=== PATIENT | male | born 1945 | race Caucasian/White ===

== ENCOUNTER 2018-01-29 12:45 | Observation (INO) | payer MEDICARE, OTHER ==
[~2018-01-29] VITALS: Ht 177.8 cm; Wt 93.0 kg
[~2018-01-29 12:45] MED LIST: ALLOPURINOL PO; ALLOPURINOL100 MG PO; ATORVASTATIN CA20 MG PO; CLOPIDOGREL75 MG PO; COLESTIPOL HCL1 GM PO; ECOTRIN81 MG PO; PANTOPRAZOLE SO40 MG PO; VERAPAMIL; VERAPAMIL ER180 MG PO; verapamil PO
--- OUTSIDE RECORDS SUMMARY | 2018-01-29 13:06 | XMS REPORT ---
Author Author [facility] Address Unknown Phone Unavailable Care Team Providers Care Chairman & Ceo Name Role Phone CHEIKH CEBALLOS Unavailable Unavailable Problems This patient has no known problems. Allergies, Adverse Reactions, Alerts This patient has no known allergies or adverse reactions. Medications This patient has no known medications. Results Test Description Test Time Test Comments Text Results Atomic Results Result Comments SPINE CERVICAL AP LAT FLEX EXT [place] [address] Patient Name: SILVANA GARRISON MR #: [id number] : 1945 Age/Sex: 72/M Req #: [id number] Adm Physician: Ordered by: CHEIKH CEBALLOS MD Report #: [id number] Location: [facility] Room/Bed: Procedure: [id number] DX/SPINE CERVICAL AP LAT FLEX EXT Exam Date: 05/22/17 Exam Time: 0725 REPORT STATUS: Signed PROCEDURE : C-SPINE AP AND LAT WITH FLEX AND EXT COMPARISON: Cervical spine, 2 views, 04/25/2017. INDICATIONS: EVALUATE FUSION STATUS FINDINGS: C1 through C7 are visualized on the lateral view. Re-demonstration of status post anterior fusion of C4, C5, and C6 with metallic plate and transfixing screws which are intact and in adequate alignment. There has been minimal interval bony fusion. Flexion and extension views demonstrate no change in alignment. The prevertebral soft tissues are not swollen. Degenerative changes are evidenced by anterior osteophytosis. CONCLUSION: Status post anterior fusion of C4-C6 with some interval bony fusion. Intact hardware with adequate alignment. Dictated by: Aleshia Galvez M.D. on 05/22/2017 at 8:23 Electronically approved by: Aleshia Galvez M.D. on 05/22/2017 at 8:23 Dictated By: ALESHIA GALVEZ MD 2 Transcribed By: VICENTA on 05/22/17822 COPY TO: CHEIKH CEBALLOS MD
[2018-01-29 13:22] VITALS: BP 154/88
[2018-01-29 13:30] VITALS: BP 154/88
[2018-01-29] MEDS ORDERED: ASPIRIN 325 MG TAB PO ONE (13:30)
[2018-01-29] MEDS ORDERED: ASPIRIN 81 MG CHEW TAB PO ONE ×2 (13:30)
[2018-01-29 14:14] LABS: CREATINE KINASE 147 IU/L (30-200)
[2018-01-29 14:24] VITALS: BP 154/88
--- NOTE | 2018-01-29 14:57 | Diagnostic Imaging Report ---
PROCEDURE: Frontal and lateral views of the chest. COMPARISON: None. INDICATIONS: UPPER CHEST PAIN FINDINGS: Lines/tubes: None. Lungs: The lungs are well inflated and clear. There is no evidence of pneumonia or pulmonary edema. Pleura: There is no pleural effusion or pneumothorax. Heart and mediastinum: The heart and the mediastinum are normal. Bones: No acute bony abnormality. IMPRESSION: 1. No acute cardiopulmonary disease. Dictated by: Robert Romo M.D. on 01/29/2018 at 14:59 Electronically approved by: Robert Romo M.D. on 01/29/2018 at 14:59
[2018-01-29 15:10] LABS: CHOL/HDL RATIO 6.5 (3.9-4.7)
[2018-01-29 15:30] VITALS: BP 139/80
--- NOTE | 2018-01-29 16:06 | History and Physical ---
A 72-year-old gentleman comes in with chest pressure. HISTORY OF PRESENTING ILLNESS: This is a 72-year-old man. Mr. Masood Chatman was in his usual state of health until yesterday the patient started in the morning with some chest pressure, woke up with it and the pressure continued, intensified in nature and this morning the patient came into my office. Had history of chest pain for 2 days and described as pressure-like pain on top of the chest and felt like someone is stabbing him in his chest. Radiation to the right shoulder and onto the left shoulder. No relieving factors. The patient also has a history of reflux esophagitis, was seen by Dr. Wilkins and is on PPIs currently. MEDICATIONS: The patient's home medications are allopurinol 100 mg, atorvastatin 20 mg, clopidogrel 75 mg, colestipol 1 gram p.o. b.i.d., pantoprazole 40 mg daily and verapamil 180 mg ER every day. SURGICAL HISTORY: Includes history of left knee surgery, cholecystectomy, left TKA as mentioned above, left foot surgery and also history of appendectomy. SOCIAL HISTORY: No ETOH, no IV drug abuse. Retired person. Lives with . REVIEW OF SYSTEMS: Positive for chest pain. Negative for shortness of breath, just the discomfort. No nausea, vomiting, diarrhea. No constipation or rectal bleeding. No hematochezia. No hematemesis. No reflux esophagitis. Some abdominal pain in the right periumbilical area. PHYSICAL EXAMINATION GENERAL: Patient is alert and oriented times 3. VITAL SIGNS: Blood pressure is 154/88, respiration of 20, pulse of 70 and temperature is 98.1. Pulse ox 96%. HEENT: Normocephalic, atraumatic. Pupils are equal to light and accommodation. CVS: S1 and S2 normal. Regular rhythm. ABDOMEN: Slight tender in the periumbilical area and also mid epigastric area. EXTREMITIES: No clubbing, cyanosis, or edema. Varicosities also . IMAGING STUDIES: Patient's chest x-ray is pending. LABORATORY VALUES: Troponins have been negative. CBC and CMP pending. The patient will be admitted to the hospital. We will go ahead and continue with cardiac enzymes. Start him on a cardiac diet. Consult Dr. Etienne for cardiac services. Will possibly do a stress test if okay with Dr. Etienne, or Karma, and will continue monitoring the patient. Further recommendations per clinical course. Will check his lipids and also his thyroid profile. Possible discharge tomorrow depending on cardiac workup. Job#: [id number] OLY
[2018-01-29] MEDS ORDERED: ECOTRIN81 MG PO (16:38)
[2018-01-29] MEDS ORDERED: COLESTIPOL HCL 1 G TAB PO SCH ×3 (17:00→19:00)
[2018-01-29] MEDS ORDERED: CLOPIDOGREL BISULFATE 75 MG TAB PO STA (17:27)
[2018-01-29] MEDS ORDERED: ENOXAPARIN INJ 80 MG/0.8 ML SYR SC STA (17:27)
[2018-01-29] MEDS ORDERED: PREDNISONE 20 MG TAB PO PRN (17:45)
[2018-01-29] MEDS ORDERED: HYDROCORTISONE SOD SUCCINATE 100 MG VIAL IV PRN (17:45)
--- NOTE | 2018-01-29 18:29 | Consultation ---
DATE OF CONSULTATION: January 29, 2018 CARDIAC CONSULTATION REASON FOR CONSULTATION: Unstable angina. HISTORY: This is a 72-year-old gentleman who is relatively healthy. He does have hypertension and degenerative joint disease. The patient also does have giardia symptoms and followed by Dr. Wilkins. He is on Protonix. He was doing extremely well. However, for the last 2 days he is having severe retrosternal chest pain, pressure in nature, radiating to his back, worse with activity, totally different from his giardia symptoms. For the last few weeks, he is able to walk with his dog, and he if the dog goes faster he will have more symptoms. Regardless the pain was very severe. He does not like to see the doctor, but he figured out something different going home. He went to Dr. Montilla's office where rightly so admitted to this institution and cardiac consultation is obtained. Patient seen approximately around 5:36 p.m. He is complaining of these symptoms. It also radiated to his left arm. There is no diaphoresis. There is no nausea and no vomiting. REVIEW OF SYSTEMS: Was extensive to all systems, only pertinent positive and negative ones will be summarized. GENERAL: No fever. No chills. PULMONARY: No cough. No hemoptysis. No recent travel. No pleuritic chest pain. CARDIAC: As per above. GI: Patient's giardia symptoms nicely controlled with Protonix and he does not have them. He does have constipation and he attributed that for him taking Colestid. : No hematuria. No dysuria. NEUROMUSCULAR: Nonspecific aches. NEUROLOGIC: No headache, no syncope or presyncope. SOCIAL HISTORY: He is retired construction engineer. He is . He stopped smoking in year 1999. He rarely has a drink. HOME MEDICATIONS: Include verapamil 180 mg a day. Aspirin 81 mg a day. Allopurinol one tablet a day. Colestid 1 tablet twice a day. Protonix 40 mg a day. ALLERGIES: IN 2002 HE HAD IODINE AND WITH THAT HE HAD RASH. DEMEROL WILL MAKE HIM GOOFY. FAMILY HISTORY: Father at age of 85 with prostate cancer complication. Mother with acute myocardial infarction at age 83. A healthy brother at age 75. A healthy sister at age 59. Healthy son at age 45. PHYSICAL EXAMINATION VITALS: Height of 5 feet, 5 inches, weight of 207 pounds. Blood pressure 130/80. Heart rate of 70. Respiratory rate of 18. HEENT: Pupils are reactive. NECK: No elevation of jugular venous pulsation. No bruit. CHEST: Clear to auscultation and percussion. HEART: PMI 5th left intercostal space. Normal 1st and 2nd heart sounds. ABDOMEN: Soft with good bowel sounds. EXTREMITIES: No cyanosis. No clubbing. No edema. NEUROLOGIC: Awake, alert and oriented. No motor or sensory deficits. EKG showing normal sinus rhythm. IMAGING: Chest x-ray with no acute changes. Lipid profile showed triglycerides of 393, cholesterol 203, HDL 31, LDL 93. ASSESSMENT 1. Chest pain compatible with unstable coronary syndrome. 2. Hypertension. 3. Hypercholesterolemia. 4. Gout. 5. Degenerative joint disease. 6. History of gastroesophageal reflux disease on treatment, nicely controlled. 7. Decreased hearing. PLAN: The patient will be inpatient. He will be loaded with Plavix. He will be given 1 shot of Lovenox. Serial cardiac enzymes to be done. Will continue his verapamil. Will continue his aspirin. Options of workup are discussed. Patient will be scheduled for cardiac catheterization with possible intervention. Procedure risks, benefits and alternatives are discussed and explained. Job#: [id number]
[2018-01-29] MEDS: COLESTIPOL HCL 1 G TAB PO SCH (19:30)
[2018-01-29 20:00] VITALS: BP 125/75
[2018-01-29 21:00] VITALS: BP 125/75
[2018-01-29] MEDS ORDERED: ATORVASTATIN 20 MG TAB PO SCH (21:00)
[2018-01-29 22:49] LABS: CREATINE KINASE 110 IU/L (30-200)
[2018-01-30] VITALS (16 sets, daily range): BP systolic 124–137; BP diastolic 71–89
[2018-01-30] MEDS: SODIUM CHLORIDE 0.9% 1000ML 1,000 ML IV SCH ×5 (06:26→23:26)
[2018-01-30 06:40] LABS: BASOPHILS % 0.5 % (0.0-1.0); EOSINOPHILS # (AUTO) 0.3 (0.0-0.4); EOSINOPHILS % 3.3 % (0.0-6.0); HEMOGLOBIN 14.4 g/dL (14.0-18.0); LYMPHOCYTES # (AUTO) 2.1 (1.0-3.2); LYMPHOCYTES % 25.4 % (18.0-39.1); MEAN CORPUSCULAR HEMOGLOBIN 29.1 pg (28-32); MEAN CORPUSCULAR HGB CONC 33.5 g/dL (31-35); MONOCYTES # (AUTO) 0.8 (0.2-0.8); NEUTROPHILS # (AUTO) 4.9 (2.1-6.9); NEUTROPHILS % 60.6 % (38.7-80.0); PLATELET COUNT 150 x10e3/uL (140-360); RED BLOOD COUNT 4.94 x10e6/uL (4.3-5.7); RED CELL DISTRIBUTION WIDTH 14.8 % (11.7-14.4)
[2018-01-30 07:01] LABS: INR 0.97; PROTHROMBIN TIME 12.1 seconds (11.9-14.5)
[2018-01-30 07:02] LABS: PARTIAL THROMBOPLASTIN TIME 33.2 seconds (23.8-35.5)
[2018-01-30 07:37] LABS: FREE THYROXINE INDEX 1.7499 (1.4-3.8); THYROID STIMULATING HORMONE 1.777 uIU/mL (0.350-4.940)
[2018-01-30 08:32] LABS: ALANINE AMINOTRANSFERASE 25 IU/L (0-55); ALBUMIN 3.3 g/dL (3.5-5.0); ALKALINE PHOSPHATASE 130 IU/L (40-150); ANION GAP 14.1 mmol/L (8-16); BLOOD UREA NITROGEN 22 mg/dL (7-26); BUN/CREATININE RATIO 15 (6-25); CALCIUM 9.5 mg/dL (8.4-10.2); CARBON DIOXIDE 24 mmol/L (22-29); CHLORIDE 107 mmol/L (98-107); CHOL/HDL RATIO 7.4 (3.9-4.7); CHOLESTEROL 201 MD/DL (0-199); CREATINE KINASE 93 IU/L (30-200); EST GLOMERULAR FILTRATION RATE 46 ML/MIN (60-); GLUCOSE 106 mg/dL (74-118); HDL CHOLESTEROL 27 MG/DL (40-60); POTASSIUM 4.1 mmol/L (3.5-5.1); SODIUM 141 mmol/L (136-145); TRIGLYCERIDES 448 MG/DL (0-149)
[2018-01-30] MEDS ORDERED: SODIUM CHLORIDE 0.9% 1000ML 0 ML ONE (08:35)
[2018-01-30] MEDS ORDERED: IOPAMIDOL 370 MG/ML 200 ML INFUS..BTL INJ ONE ×2 (08:35→09:41)
[2018-01-30] MEDS ORDERED: LIDOCAINE HCL 2% LOCAL 20 ML VIAL ONE (08:35)
[2018-01-30] MEDS ORDERED: HEPARIN SOD (PORCINE) 1000 UNIT/ML 30ML ONE (08:35)
[2018-01-30] MEDS ORDERED: FENTANYL CITRATE/PF 100MCG/2 ML INJ ONE (08:55)
[2018-01-30] MEDS ORDERED: MIDAZOLAM HCL 2 MG/2 ML VIAL ONE ×2 (08:55→09:49)
[2018-01-30] MEDS ORDERED: PREDNISONE 20 MG TAB PO SCH (09:00)
[2018-01-30] MEDS ORDERED: CLOPIDOGREL BISULFATE 75 MG TAB PO SCH (09:00)
--- NOTE | 2018-01-30 12:01 | Operative Report ---
DATE OF PROCEDURE: January 30, 2018 TITLE OF PROCEDURE: Left cardiac catheterization. INDICATIONS: Unstable coronary syndrome. TECHNICAL DETAILS: After the usual sterile preparation and draping procedure, intravenous Versed and fentanyl given for sedation and local Xylocaine for anesthesia. A 4-Scottish sheath established in place and 3DRC to engage the right coronary artery. 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 We tried several catheters including JL3.5, JL4, AL1, AL2 and multipurpose. We were unable to engage the left main. For that reason the existing 4-Scottish sheath upgraded to a 5-Scottish sheath. A catheter FL3.5 used to engage the left main. Angiograms were done. Pigtail catheter for the left ventriculogram and aortic root injection. There were no complication, no blood loss. Total dye used approximately 125 mL. RESULTS 1. Coronary angiogram. 1. Left main anomalous origin. A 5-Scottish FL3.5 to engage. 2. LAD. There is ectatic area in the mid LAD. After that there is stagnant flow. There is 40% lesion. 3. Circumflex coronary artery free of disease. 4. Right coronary artery dominant artery is free of disease. B. Hemodynamic aorta pressure 140/80. LV pressure 140/20. C. Left ventriculogram in the right anterior oblique view showed normal size ventricle with an ejection fraction of 65%. IMPRESSION 1. Anomalous left main. 2. Dominant right coronary artery. 3. 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 4. Left ventricular ejection fraction of 65%. COMPLICATIONS: None. BLOOD LOSS: None. RECOMMENDATION: Medical therapy. Job#: [id number] OLY
[2018-01-30 15:40] LABS: CREATINE KINASE 139 IU/L (30-200)
[2018-01-30] MEDS: ASPIRIN 81 MG ENTERIC COATED PO SCH (18:24)
[2018-01-30] MEDS: VERAPAMIL HCL 180 MG TBER PO SCH (18:26)
[2018-01-30] MEDS: PANTOPRAZOLE SOD 40 MG TABEC PO SCH (18:26)
[2018-01-30] MEDS: COLESTIPOL HCL 1 G TAB PO SCH (18:26)
[2018-01-30] MEDS: ALLOPURINOL 100 MG TAB PO SCH (18:26)
[2018-01-31] VITALS: BP 142/84
[2018-01-31 04:00] VITALS: BP 141/83
[2018-01-31 07:29] VITALS: BP 136/91
[2018-01-31] MEDS: ASPIRIN 81 MG ENTERIC COATED PO SCH (09:39)
[2018-01-31] MEDS: VERAPAMIL HCL 180 MG TBER PO SCH (09:40)
[2018-01-31] MEDS: ALLOPURINOL 100 MG TAB PO SCH (09:40)
[2018-01-31] MEDS: PANTOPRAZOLE SOD 40 MG TABEC PO SCH (09:40)
[2018-01-31 10:52] VITALS: BP 136/91
== END 2018-01-31 13:40 | disposition home or self-care (01) ==
LOC: PREINTOOBSV 12:54 → IMCU 13:04
PROVIDERS: ADMIT Family Medicine; ATTEND Family Medicine
DX: I20.0 Unstable angina (principal); R07.9 Chest pain, unspecified; M19.90 Unspecified osteoarthritis, unspecified site; Z87.891 Personal history of nicotine dependence; E78.00 Pure hypercholesterolemia, unspecified; M10.9 Gout, unspecified; K21.9 Gastro-esophageal reflux disease without esophagitis; H91.90 Unspecified hearing loss, unspecified ear; Z80.42 Family history of malignant neoplasm of prostate; Z82.49 Family history of ischemic heart disease and other diseases of the circulatory system; E78.5 Hyperlipidemia, unspecified; I12.9 Hypertensive chronic kidney disease with stage 1 through stage 4 chronic kidney disease, or unspecified chronic kidney disease; N18.3 Chronic kidney disease, stage 3 (moderate)
CPT/HCPCS: 36415 ×2; 71046; 77002; 80053; 80061 ×2; 82270; 82550 ×2; 82553 ×2; 84436; 84443; 84479; 84484 ×2; 85025; 85610; 85730; 93005; 93306; 93458; C1760; C1766; G0378 ×3; J1650; J1720; J2001; J2250; J7030; Q9967; 36140; 93452; J1644

== ENCOUNTER → 2018-04-22 | Outpatient (CLI) | payer MEDICARE, OTHER ==
--- NOTE | 2018-04-22 12:20 | Diagnostic Imaging Report ---
PROCEDURE:LIVER ULTRASOUND COMPARISON:CT Abdomen/Pelvis 08/16/2012 and MRI Abdomen 09/25/2012. INDICATIONS:ABNORMAL RESULTS OF LIVER FUNCTION STUDIES FINDINGS: Exam somewhat limited secondary to overlying bowel gas. Liver: The liver is nodular in appearance with increased echogenicity. Anechoic cyst measuring 2.5 cm is present in the anterior-superior aspect of the right lobe of the liver. Main portal vein: Measures 1.1 cm. Hepatopedal flow. Gallbladder: Status post cholecystectomy. Common Bile Duct: The CBD measures 6 mm. No echogenic filling defect. Right kidney: Measures 9.2 cm. No solid or cystic mass, echogenic calculi, or hydronephrosis. Normal parenchymal echogenicity. Pancreas: Not well visualized due to overlying bowel gas. Inferior vena cava: Visualized portions are unremarkable. Aorta: Tortuous in appearance. Ascites: None. CONCLUSION: Cirrhotic morphology to the liver. Echogenic liver, which may represent fatty liver. Note is made that the patient had an MRI Liver on 09/25/2012, at that time follow-up MRI was suggested. A liver MRI may be considered for further evaluation. Dictated by: SANTO SUAREZ M.D. on 04/22/2018 at 12:25 Electronically approved by: SANTO SUAREZ M.D. on 04/22/2018 at 12:25
== END ==
LOC: US 10:11
PROVIDERS: ATTEND Family Medicine
DX: R94.5 Abnormal results of liver function studies (principal)
CPT/HCPCS: 76705

== ENCOUNTER → 2018-05-05 | Outpatient (CLI) | payer MEDICARE, OTHER ==
[2018-05-04 15:33] LABS: CREATININE, SERUM 1.32 mg/dL (0.72-1.25)
[~2018-05-05] MED LIST changes: +GADOBENATE DIMEGLUMINE 1 ML IV ONE
--- NOTE | 2018-05-05 14:21 | Diagnostic Imaging Report ---
PROCEDURE: MRI ABDOMEN WOW TECHNIQUE: Axial T1 in and out of phase, axial T2, fat-sat, coronal, T2 with and without fat-sat, axial DWI, and ADC MR images of the abdomen were performed before the intravenous administration of 20 cc of gadolinium. Axial T1, GRE dynamic images in precontrast, arterial, venous and delayed phases were also obtained, as well as delayed postcontrast axial ASSETT. Subtraction images were also performed. COMPARISON: [facility], MRI, MRI ABDOMEN WOW, 09/25/2012, 15:53. [facility], US, US LIVER, 04/22/2018, 10:37. [facility], MR, MRI ABDOMEN WOW, 04/28/2013, 12:00. INDICATIONS: Abnormal ultrasound liver, cirrhosis FINDINGS: LOWER THORAX: Unremarkable. LIVER: Normal hepatic size, measuring approximately 12-13 cm in the right midclavicular line. Mild signal dropout of the hepatic parenchyma on out of phase images, consistent with mild steatosis. Nodular hepatic contour. Stable diffuse reticulated T2 hyperintensity, consistent with fibrosis. Innumerable stable T1 hypointense, T2 hyperintense lesions scattered throughout both lobes of the liver, with the 3 largest as follows: * Mildly lobulated nonenhancing lesion in hepatic segment IVB which measures approximately 1.8 x 1.7 x 2.3 cm (series 11, image 68) consistent with a simple cyst. * 1.0 x 1.2 x 1.2 cm nonenhancing lesion in hepatic segment VIII at the dome (series 11, image 104), which contains a thin nonvascular septation. * 1.0 x 1.4 cm nonenhancing lesion in hepatic segment VII at the dome (series 11, image 56), which contains a thin, nonenhancing septation. Stable 1.8 x 1.8 cm T1 hypointense, T2, mild hyperintense lobulated lesion in hepatic segment III (series 5, image 20), which shows homogeneous arterial enhancement (series 11, image 70) and retention of contrast throughout all phases of the dynamic study, including the postcontrast delayed images (series, 12, image 19). This lesion shows mild restriction diffusion (series 3, image 15 of series 300, image 26). No wash out or capsule is identified. No new focal lesions or suspicious arterial enhancing lesions. BILIARY: No ductal dilatation or filling defect. Magnetic susceptibility artifact from cholecystectomy clips. PANCREAS: No mass or ductal dilatation. SPLEEN: No splenomegaly. ADRENALS: No nodules. KIDNEYS: No hydronephrosis or solid, enhancing mass in the imaged portion of the kidneys. Innumerable T1 hypointense, T2 hyperintense, nonenhancing, cystic lesions, which are stable, with the largest in the left kidney measuring 1.1 cm and the largest in the right kidney measuring approximately 0.7 cm (series 100, images 35 and 33). PERITONEUM / RETROPERITONEUM: No upper abdominal free fluid. LYMPH NODES: No upper abdominal lymphadenopathy. VESSELS: Celiac trunk, superior and inferior mesenteric, and bilateral renal arteries are patent. Portal, superior mesenteric, and splenic veins are patent. Portal vein measures approximately 1.5 cm. BONES AND SOFT TISSUES: No abnormal bone marrow signal. Soft tissues are grossly unremarkable.. IMPRESSION: 1. Cirrhotic liver with evidence of portal hypertension manifested by dilated portal vein. 2. No suspicious arterial enhancing lesions are identified. 3. Stable innumerable T2 hyperintense, nonenhancing lesions throughout the hepatic parenchyma, consistent with simple cysts or biliary hamartomas. 2 of the largest lesions described contain a thin, nonenhancing septation, consistent with minimally complicated cysts. 4. 1.8 cm enhancing lesion in hepatic segment III, which is stable since 2013 and has imaging characteristics suggestive consistent with hemangioma. 5. Mild hepatic steatosis (calculated hepatic fat fraction 8.3%, calculated hepatic fat percentage 14.4%). Rishabh Hood M.D. Dictated by: Rishabh Hood M.D. on 05/05/2018 at 11:56 Electronically approved by: Rishabh Hood M.D. on 05/05/2018 at 11:56
== END ==
LOC: MRI 05-04 14:18
PROVIDERS: ATTEND Family Medicine
DX: R94.5 Abnormal results of liver function studies (principal)
CPT/HCPCS: 36415; 74183; 82565; 84520

== ENCOUNTER → 2018-09-22 | Outpatient (CLI) | payer MEDICARE, OTHER ==
[~2018-09-22] MED LIST changes: -GADOBENATE DIMEGLUMINE 1 ML IV ONE
--- NOTE | 2018-09-22 10:27 | Diagnostic Imaging Report ---
Exam: Left hip radiographs (2 views), AP radiograph of the pelvis History: Left hip osteoarthritis. Comparison: None. Findings: AP radiograph of the pelvis demonstrates no evidence of acute fracture or malalignment. There are mild degenerative changes of bilateral hips with joint space narrowing and subchondral sclerosis. Mild degenerative changes of the pubic symphysis and bilateral sacroiliac joints. Dedicated left hip radiographs demonstrate no acute osseous or soft tissue abnormality. Impression: Mild bilateral hip osteoarthritis. No acute osseous abnormality. Signed by: Dr. Rashaun Worley MD on 09/22/2018 10:24 AM
--- NOTE | 2018-09-22 10:31 | Diagnostic Imaging Report ---
EXAM: lumbar spine, five views DATE: 09/22/2018. INDICATION: Lower back pain COMPARISON: None FINDINGS: BONES: The alignment is within normal limits. No acute displaced fractures. Vertebral body heights are preserved. DISCS: Moderate degenerative disc changes at L5-S1 and mild degenerative disc changes elsewhere in the lumbar spine. JOINTS: Moderate facet degenerative changes, most pronounced at L5-S1. SOFT TISSUES: Atherosclerotic aortic calcifications. Cholecystectomy clips project over the right upper quadrant. IMPRESSION: Moderate degenerative disc and facet degenerative changes at L5-S1. Signed by: Dr. Rashaun Worley MD on 09/22/2018 10:27 AM
== END ==
LOC: RAD 09:44
PROVIDERS: ATTEND Family Medicine
DX: M54.16 Radiculopathy, lumbar region (principal); M16.12 Unilateral primary osteoarthritis, left hip
CPT/HCPCS: 72110

== ENCOUNTER → 2018-10-02 | Outpatient (CLI) | payer MEDICARE, OTHER ==
--- NOTE | 2018-10-02 09:58 | Diagnostic Imaging Report ---
MRI SPINE LUMBAR WO HISTORY: Low back and right hip pain COMPARISON: Lumbar spine radiographs 09/22/2018; MRI of the lumbar spine 09/10/2012 TECHNIQUE: Sagittal T1, sagittal T2, sagittal STIR, axial T2, coronal T2, and axial proton density weighted images of the lumbar spine were obtained without contrast. DISCUSSION: Number of non-rib bearing lumbar vertebral bodies: 5. Alignment: Normal lordosis. No scoliosis. Vertebrae: No fractures, infection or neoplasm. Conus medullaris: Normal, ends at L1. Cauda equina: No masses or arachnoiditis. Posterior paraspinal muscles: Well preserved. No signal abnormalities. Soft tissues: Multiple small bilateral T2 hyperintense renal lesions are likely cysts. Mild to moderate multilevel disc degeneration is most prominent at L5-S1. There are nonspecific minimal inflammatory endplate changes on the left at L4-L5. T12-L1: Patent canal and foramina. L1-L2: Patent canal and foramina. L2-L3: Patent canal and foramina. L3-L4: Mild bilateral foraminal stenoses due to disc bulge and facet arthrosis. No significant canal stenosis. L4-L5: Mild to moderate bilateral foraminal stenoses due to disc bulge and facet arthrosis. No significant canal stenosis. There is mild periarticular edema along the left L4-L5 facet joint. L5-S1: Moderate right and mild to moderate left foraminal stenoses due to disc bulge and facet arthrosis. No significant canal stenosis. IMPRESSION: 1. Mild to moderate multilevel disc degeneration, most prominent at L5-S1, without significant canal stenosis. Nonspecific minimal inflammatory endplate changes on the left at L4-L5. 2. Multilevel degenerative foraminal stenoses - moderate right and mild to moderate left at L5-S1; mild to moderate bilaterally at L4-L5. 3. Possible mild left L4-L5 facet synovitis. Signed by: Dr. Philippe Peterson M.D. on 10/02/2018 9:54 AM
== END ==
LOC: MRI 07:16
PROVIDERS: ATTEND Family Medicine
DX: M54.16 Radiculopathy, lumbar region (principal)
CPT/HCPCS: 72148

== ENCOUNTER 2020-03-03 13:43 | Emergency (ER) | payer MEDICARE, OTHER ==
[~2020-03-03] VITALS: Ht 177.8 cm; Wt 93.0 kg
[2020-03-03] MEDS ORDERED: TETANUS/DIPHTHERIA TOX ADULT 0.5 ML SYR IM ONE (14:15)
--- NOTE | 2020-03-03 14:48 | Diagnostic Imaging Report ---
EXAMINATION: ELBOW 3 VIEW LT - HOPD INDICATION: Fall COMPARISON: None FINDINGS: No acute fracture or dislocation. Alignment is anatomic. No joint effusion. Soft tissues appear unremarkable. IMPRESSION: No acute osseous injury of the left elbow. Signed by: Selam Reddy MD on 03/03/2020 2:45 PM
--- NOTE | 2020-03-03 15:46 | Emergency Department Note ---
History of Present Illnes History of Present Illness Chief Complaint: left elbow pain s/p fell off back of truck and hit left elbow. History of Present Illness This is a 74 year old male. was doing well prior to this. Historian: Patient Arrival Mode: Car History limited by: condition of the patient (normal) Energy Trading Analyst Required: No Onset (how long ago): hour(s) (3) Location: left elbow Quality: sharp Radiation: Reports non-radiation Severity: moderate Onset quality: sudden Duration (how long): hour(s) (3) Timing of current episode: constant Progression: unchanged Chronicity: new Context: Denies recent illness, Denies recent surgery, Denies recent immobilization, Denies recent travel, Denies trauma/injury, Denies new medications Relieving factors: none Exacerbating factors: none Associated symptoms: Reports denies other symptoms Treatments prior to arrival: none Past Medical/Family History Physician Review I have reviewed the patient's past medical and family history. Any updates have been documented here. Past Medical History Recent Fever: No Clinical Suspicion of Infectio: No New/Unexplained Change in Ment: No Other Medical History: GOUT Other Surgery: L TKR HERNIA REPAIR KIDNEY STONES Social History Smoking Cessation: Never Smoker Counseling Performed: No Alcohol Use: Social Any Illegal Drug Use: No TB Exposure/Symptoms: No Physically hurt or threatened: No Family History Family history of heart diseas: No Other Any Pre-Existing Lines (PICC,: No Is patient up to date on immun: No Review of Systems Review of Systems Constitutional: Reports no symptoms EENTM: Reports no symptoms Cardiovascular: Reports no symptoms Respiratory: Reports no symptoms Gastrointestinal: Reports no symptoms Genitourinary: Reports no symptoms Musculoskeletal: Reports as per HPI Integumentary: Reports no symptoms Neurological: Reports no symptoms Psychological: Reports no symptoms Endocrine: Reports no symptoms Hematological/Lymphatic: Reports no symptoms Physical Exam Related Data Allergies: Coded Allergies: iodine (Verified Allergy, Unknown, 01/01/10) meperidine (Verified Allergy, Unknown, 01/01/10) Vital signs reviewed: Yes Physical Exam CONSTITUTIONAL Constitutional: Present well-developed, Present well-nourished HENT HENT: Present normocephalic, Present atraumatic, Present oropharynx clear/moist, Present nose normal HENT L/R: Present left ext ear normal, Present right ext ear normal EYES Eyes: Reports PERRL, Reports conjunctivae normal NECK Neck: Present ROM normal PULMONARY Pulmonary: Present effort normal, Present breath sounds normal CARDIOVASCULAR Cardiovascular: Present regular rhythm, Present heart sounds normal, Present capillary refill normal, Present normal rate GASTROINTESTINAL Abdominal: Present soft, Present nontender, Present bowel sounds normal GENITOURINARY Genitourinary: Present exam deferred SKIN Skin: Present warm, Present dry, Present other (abrasion/small puncture wound ) MUSCULOSKELETAL Musculoskeletal: Present ROM normal, Present tenderness (left elbow), Present swelling (mild); Absent deformity NEUROLOGICAL Neurological: Present alert, Present oriented x 3, Present no gross motor or sensory deficits PSYCHOLOGICAL Psychological: Present mood/affect normal, Present judgement normal Results Imaging Imaging results reviewed: Yes Impressions [place] [address] Patient Name: SILVANA GARRISON MR #: [id number] : 1945 Age/Sex: 74/M Req #: [id number] Adm Physician: Ordered by: IVELISSE SINCLAIR Report #: [id number] Location: [facility] Room/Bed: Procedure: [id number] HOPD/ELBOW 3 VIEW LT - HOPD Exam Date: 03/03/20 Exam Time: 1425 REPORT STATUS: Signed EXAMINATION: ELBOW 3 VIEW LT - HOPD INDICATION: Fall COMPARISON: None FINDINGS: No acute fracture or dislocation. Alignment is anatomic. No joint effusion. Soft tissues appear unremarkable. IMPRESSION: No acute osseous injury of the left elbow. Signed by: Melany Reddy MD on 03/03/2020 2:45 PM Dictated By: MELANY REDDY MD [id number] Transcribed By: TING on 03/03/20 144 COPY TO: IVELISSE SINCLAIR~ Assessment & Plan Medical Decision Making MDM see rxs below Assessment & Plan Final Impression: (1) Left elbow contusion (2) Puncture wound (3) Abrasion Depart Disposition: HOME, SELF-skilled nursing Meds Active Scripts Sulfamethoxazole/Trimethoprim (BACTRIM DS TABLET) 1 Each Tablet, 1 TAB PO Q12H for 10 Days, #20 TAB Prov:IVELISSE SINCLAIR 03/03/20 Reported Medications Aspirin (ECOTRIN) 81 Mg Tablet.dr, 81 MG PO DAILY 01/29/18 Colestipol Hcl,Micronized (COLESTIPOL HCL) 1 Gm Tablet, 2 GM PO HS, #30 TAB 04/23/17 Pantoprazole Sodium* (PROTONIX) 40 Mg Tablet.dr, 40 MG PO DAILY, TAB 04/23/17 Allopurinol (ALLOPURINOL) 100 Mg Tablet, 100 MG PO DAILY 03/27/14 Verapamil Hcl (VERAPAMIL ER) 180 Mg Tber, 180 MG PO DAILY 03/27/14 Medications in the ED Tetanus/ Diphtheria Toxoids 0.5 ml ONCE ONCE IM ; Start 03/03/20 at 14:15; Stop 03/03/20 at 14:16 IVELISSE SINCLAIR Mar 03, 2020 15:46
[2020-03-03] MEDS ORDERED: BACTRIM DS TAB1 EACH PO (15:48)
[2020-03-03] MEDS ORDERED: BACITRACIN ZINC 0.9GM TP ONE ×2 (15:55→16:06)
[2020-03-03] MEDS ORDERED: TETANUS/DIPHTHERIA TOX ADULT 0.5 ML SYR ONE (15:58)
== END 2020-03-03 16:17 | disposition home or self-care (01) ==
LOC: FSED 13:43
DX: M25.522 Pain in left elbow (principal); S50.02XA Contusion of left elbow, initial encounter; W17.89XA Other fall from one level to another, initial encounter; Y92.89 Other specified places as the place of occurrence of the external cause; M10.9 Gout, unspecified
CPT/HCPCS: 90471; 90714; 99283

== ENCOUNTER → 2022-02-22 | Outpatient (CLI) | payer MEDICARE, OTHER ==
[~2022-02-22] MED LIST changes: +BACTRIM DS TAB1 EACH PO
== END ==
LOC: MRI 06:56
PROVIDERS: ATTEND Family Medicine
DX: M54.50 Low back pain, unspecified (principal)
CPT/HCPCS: 72148

== ENCOUNTER → 2022-12-19 | Day surgery (SDC) | payer MEDICARE, OTHER ==
[2022-12-12 09:19] LABS: BASOPHILS % 0.5 % (0.0-1.0); EOSINOPHILS # (AUTO) 0.2 (0.0-0.4); EOSINOPHILS % 3.9 % (0.0-6.0); HEMATOCRIT 43.4 % (38.2-49.6); HEMOGLOBIN 13.9 g/dL (14.0-18.0); LYMPHOCYTES # (AUTO) 1.6 (1.0-3.2); LYMPHOCYTES % 26.6 % (18.0-39.1); MEAN CORPUSCULAR HEMOGLOBIN 29.3 pg (28-32); MEAN CORPUSCULAR VOLUME 91.4 fL (81-99); MONOCYTES # (AUTO) 0.6 (0.2-0.8); MONOCYTES % 9.1 % (4.4-11.3); NEUTROPHILS # (AUTO) 3.7 (2.1-6.9); NEUTROPHILS % 59.6 % (38.7-80.0); PLATELET COUNT 144 x10e3/uL (140-360); RED BLOOD COUNT 4.75 x10e6/uL (4.3-5.7); RED CELL DISTRIBUTION WIDTH 13.9 % (11.7-14.4)
[2022-12-12 09:32] LABS: ANION GAP 13.2 mmol/L (8-16); CALCIUM 9.4 mg/dL (8.4-10.2); CREATININE, SERUM 1.62 mg/dL (0.72-1.25); POTASSIUM 4.2 mmol/L (3.5-5.1)
[~2022-12-19] MED LIST changes: +BUPIVACAINE 0.25% 30ML SDV ONE; +DEXAMETHASONE SOD PHOS INJ 4 MG/ML SDV ONE; +FENTANYL CITRATE/PF 100MCG/2 ML INJ ONE; +GLYCOPYRROLATE INJ 0.2 MG/ML VIAL ONE; +LACTATED RINGER'S 1,000 ML ONE; +LIDOCAINE HCL 2% LOCAL INJ 5 ML SDV VIAL INJ ONE; +LOSARTAN POTASS25 MG PO; +NEOSTIGMINE 1 MG/ML 10ML VIAL ONE; +ONDANSETRON HCL INJ 2MG/ML 2ML 2 MG/ML VIAL ONE; +ONE DAILY FOR1 EAC2; +POVIDONE IODINE 0.05% 0.05 % ML PO ONE; +PROPOFOL IV EMULSION 10 MG/ML 20 ML VIAL ONE; +ROCURONIUM BROMIDE 10 MG/ML 5ML VIAL IV ONE; +SEVOFLURANE INHAL SOLN 250 ML PEN BTL ONE
[2022-12-19 13:20] VITALS: BP 118/67
== END | disposition home or self-care (01) ==
LOC: OR 08:59
PROVIDERS: ATTEND Surgery
DX: K43.6 Other and unspecified ventral hernia with obstruction, without gangrene (principal); I10 Essential (primary) hypertension; N40.0 Benign prostatic hyperplasia without lower urinary tract symptoms; Z88.6 Allergy status to analgesic agent; Z01.810 Encounter for preprocedural cardiovascular examination; Z01.812 Encounter for preprocedural laboratory examination; Z01.818 Encounter for other preprocedural examination; Z79.82 Long term (current) use of aspirin; Z79.899 Other long term (current) drug therapy
CPT/HCPCS: 36415; 49594; 71046; 80048; 85025; 93005; C1781; J1100; J2001; J2405; J2704; J2710; J3010; J7121